=== PATIENT | female | born 2000 | race Caucasian/White ===

== ENCOUNTER 2021-06-06 11:10 | Emergency (ER) | payer MEDICAID, SELFPAY ==
[2021-06-06 11:13] VITALS: BP 126/79; PULSE 72; RESP 18; TEMP 36.1; BMI 24.4
--- NOTE | 2021-06-06 11:46 | RAD_ITS ---
STUDY: X-RAY - LEFT KNEE REASON FOR EXAM: Female, 21 years old. Fall. TECHNIQUE: 4 view(s) of the knee. COMPARISON: None. FINDINGS: No acute fracture, dislocation or osseous destruction. No significant joint space narrowing. No significant productive changes. Mild soft tissue swelling. RAD/Knee 4 or More Views IMPRESSION: Left knee intact Mild soft tissue swelling Electronically Signed: Landen Landin DO at 12:39 EDT Tel , Service support ,
--- NOTE | 2021-06-06 11:46 | RAD_ITS ---
STUDY: X-RAY - PELVIS REASON FOR EXAM: Female, 21 years old. Fall TECHNIQUE: One view of the pelvis was obtained. COMPARISON: None. FINDINGS: There is a non-specific bowel gas pattern. Normal visualized soft tissue structures. Normal bilateral iliac wings, sacroiliac joints and visualized sacrum. Normal visualized bilateral superior and inferior pubic rami. Normal pubic symphysis. Normal ischial tuberosities. Normal visualized right femoral head. Normal right acetabulum. Normal right hip joint. Normal visualized left femoral head. Normal left acetabulum. Normal left hip joint. RAD/Pelvis 1 or 2 Views IMPRESSION: Normal x-ray examination of the pelvis. Electronically Signed: Robert Silvestre MD at 12:40 EDT , Service support ,
--- NOTE | 2021-06-06 12:00 | RAD_ITS ---
STUDY: X-RAY - LEFT FEMUR REASON FOR STUDY: Female, 21 years old. fall TECHNIQUE: 4 view(s) of the femur. COMPARISON: None. FINDINGS: No acute fracture, dislocation or osseous destruction. Mild soft tissue swelling. RAD/Femur Min 2 Views IMPRESSION: Left femur intact Mild soft tissue swelling Electronically Signed: Landen Landin DO at 12:41 EDT Tel , Service support ,
--- NOTE | 2021-06-06 13:40 | EX.ED.DYSGE1 ---
HPI History of Present Illness Chief Complaint: Lower Extremity Injury Informant: patient Narrative Narrative: 21-year-old female presenting with left thigh pain. Patient states she was going down a slide yesterday and landed on her left thigh. She did not hit her head or lose consciousness. She has had painful ambulation since. She states she has a history of previous fracture of her hip. Denies other injuries or complaints. She has not tried any medication at home for pain. Prior similar symptoms: Yes Recent Illness/Hospitalization: No PFSH PFSH Home Medications naproxen 500 mg PO BID PRN #20 tab 06/06/21 [Rx Last Taken Unknown] Allergy/AdvReac Type Severity Reaction Status Date / Time No Known Allergies Allergy Verified 06/06/21 11:33 Social History Smoking Status: Unknown if ever smoked ROS ROS ED Constitutional Constitutional ED: Denies fever(s) Eyes Eyes: Denies change in vision ENT ENT ED: Denies rhinorrhea or sore throat Cardiovascular Cardiovascular: Denies chest pain or palpitations Respiratory/Chest Respiratory/Chest: Denies cough or dyspnea Gastrointestinal Gastrointestinal: Denies abdominal pain, diarrhea, nausea or vomiting Genitourinary Genitourinary ED: Denies dysuria Musculoskeletal Musculoskeletal: Reports other Details: left thigh pain Integumentary Denies rash Neurologic Neurologic: Denies headache(s) Psychiatric Psychiatric: Denies suicidal thoughts EXAM Physical Exam Const Vital Signs: 06/06/21 11:13 Temperature 96.9 F L Temperature Source Temporal Pulse Rate 72 Respiratory Rate 18 Blood Pressure 126/79 H Blood Pressure Mean 94 Positive well nourished and well developed General Appearance ED: well developed HEENT Reports normocephalic and head/scalp atraumatic Eyes PERRL and EOMs intact bilaterally Neck supple General: Negative for tenderness Chest Wall inspection of chest normal Resp normal respiratory effort and clear to auscultation bilaterally Cardio regular rate and regular rhythm GI non-tender and non-distended Palpation: soft; Negative for guarding or rebound tenderness present no CVA tenderness Extremity normal to inspection Extremity Narrative: Tenderness lateral aspect of left thigh. No significant swelling or ecchymosis. Active full range of motion. Knee is nontender to palpation. Normal distal pulses. Neuro oriented x3 and no sensory deficits noted Sensorium / Orientation: alert Motor Exam: strength 5/5 throughout Psych mental status grossly normal MDM MDM MDM Narrative Medical decision making narrative: X-ray left knee, left femur and pelvis read by myself and radiology show mild soft tissue swelling, no fracture. Patient is given Naprosyn. She was given crutches. Advised to follow-up with primary care physician. Advised return to ED for worsening complaints. Radiography Diagnostic Testing: Radiology Impression Knee X-Ray 06/06/21 11:46 IMPRESSION: Left knee intact Mild soft tissue swelling Electronically Signed: Landen Landin DO at 12:39 EDT Tel , Service support , Pelvis X-Ray 06/06/21 11:46 IMPRESSION: Normal x-ray examination of the pelvis. Electronically Signed: Robert Silvestre MD at 12:40 EDT , Service support , Femur X-Ray 06/06/21 12:00 IMPRESSION: Left femur intact Mild soft tissue swelling Electronically Signed: Landen Landin DO at 12:41 EDT Tel , Service support , Discharge Plan Triage Chief Complaint: Lower Extremity Injury ED Provider: Jen Pan Dx/Rx/DC Orders Clinical Impression: Contusion of left lower extremity Instructions: Bruises (Contusions) Prescriptions: New naproxen 500 mg tablet 500 mg PO BID PRN Qty: 20 RF: 0 Primary Care Provider: Care Physician,No Primary Referrals: Kleber Ivey DO [NON-STAFF] - Care Physician,No Primary [Primary Care Provider] - Disposition Disposition: Home, Self Care
[2021-06-06 14:21] VITALS: BP 112/89; PULSE 75; RESP 14
== END 2021-06-06 14:26 | disposition home or self-care (01) ==
PROVIDERS: Emergency Provider Emergency Medicine
DX: S80.12XA Contusion of left lower leg, initial encounter (principal); X58.XXXA Exposure to other specified factors, initial encounter; Y93.89 Activity, other specified; Y92.89 Other specified places as the place of occurrence of the external cause; Y99.8 Other external cause status
CPT/HCPCS: 72170; 73552; 73564; 99283